=== PATIENT | female | born 1945 | race Caucasian/White ===

== ENCOUNTER 2023-07-14 13:22 | Outpatient (CLI) | payer MEDICARE, OTHER ==
--- NOTE | 2023-07-14 13:41 | XRAY Report ---
PROCEDURE: Ankle 3+V RT INDICATIONS: RIGHT ANKLE SPRAIN TECHNIQUE: 3 views of the ankle were acquired. COMPARISON: None. FINDINGS: Bones: Cortical irregularity involving tip of lateral malleolus is seen suggestive of subacute avuls ion injury in this area. Periosteal reaction adjacent to medial and lateral malleoli is seen concerni ng for subtle nondisplaced fractures. Ankle mortise is normally aligned. No suspicious bony lesions. Soft tissues: Diffuse ankle soft tissue swelling is seen. Moderate tibiotalar joint effusion. Achill es tendon appears normal. IMPRESSION: Suggestion of subtle subacute appearing subacute appearing nondisplaced fractures involvi ng medial and lateral malleoli. Ankle mortise is congruent. Diffuse ankle soft tissue swelling and mo derate joint effusion. Reviewed by: Raj Tesfaye MD on 07/14/2023 1:39 PM PDT Approved by: Raj Tesfaye MD on 07/14/2023 1:39 PM PDT Station ID: [id number]
== END 2023-07-14 23:59 | disposition home or self-care (01) ==
LOC: DI.S 13:22
PROVIDERS: ATTEND Physician Assistant Medical
DX: M25.471 Effusion, right ankle (principal); R22.41 Localized swelling, mass and lump, right lower limb

== ENCOUNTER 2023-08-12 08:42 | Outpatient (CLI) | payer MEDICARE, OTHER ==
--- NOTE | 2023-08-12 10:35 | XRAY Report ---
PROCEDURE: Ankle 3+V RT INDICATIONS: RIGHT ANKLE PAIN TECHNIQUE: 3 views of the ankle were acquired. COMPARISON: 07/14/2023 FINDINGS: Bones: Slight irregularity at the medial and lateral malleoli again seen. The ankle mortise appears i ntact. Overall mild degenerative changes. Soft tissues: No suspicious calcifications. Possible soft tissue swelling. IMPRESSION: Mild irregularity at the medial and lateral malleoli, likely sequelae of prior injury. There is soft tissue swelling. If there is high concern for further derangement, consider MRI evaluation. Reviewed by: Milton Means MD on 08/12/2023 10:34 AM PDT Approved by: Milton Means MD on 08/12/2023 10:34 AM PDT Station ID: [id number]
== END 2023-08-12 08:43 | disposition home or self-care (01) ==
LOC: DI 08:42
PROVIDERS: ATTEND Orthopaedic Surgery
DX: M25.571 Pain in right ankle and joints of right foot (principal)